=== PATIENT | female | born 1990 | race Two or more races ===

== ENCOUNTER 2018-02-04 13:47 | Emergency (ER) | payer SELFPAY ==
[2018-02-04] MEDS ORDERED: Sodium Chloride 0.9% 2.5 ML Syringe FLUSH PRN (14:21)
[2018-02-04] MEDS ORDERED: Sodium Chloride 0.9% 10 ML Syringe FLUSH PRN (14:21)
[2018-02-04 15:02] LABS: CHLORIDE,CL 102 mmol/L (98-107); SODIUM,NA 136 mmol/L (136-145)
[2018-02-04] MEDS ORDERED: Famotidine 20 MG/2 ML SDV IVPUSH ONE (15:04)
[2018-02-04] MEDS ORDERED: Ondansetron 4 MG Tab.DIS PO ONE (15:13)
[2018-02-04] MEDS ORDERED: Famotidine 20 MG Tab PO ONE (15:14)
--- NOTE | 2018-02-04 15:44 | EDM.PDOC ---
ED HPI GENERAL MEDICAL PROBLEM - General Chief Complaint: Abdominal Pain Stated Complaint: ABDOMINAL PAIN Time Seen by Provider: 02/04/18 13:55 Source of Information: Reports: Patient History Limitations: Reports: No Limitations - History of Present Illness INITIAL COMMENTS - FREE TEXT/NARRATIVE: History of present illness: []Patient found out she was on vacation and has been vomiting frequently now presents with epigastric pain. She denies any lower abdominal pain, vaginal bleeding or discharge. Patient denies any vomiting blood, fevers, chills or diarrhea. Review of systems: As per history of present illness and below otherwise all systems reviewed and negative. Past medical history: As per history of present illness and as reviewed below otherwise noncontributory. Surgical history: As per history of present illness and as reviewed below otherwise noncontributory. Social history: No reported history of drug or alcohol abuse. Family history: As per history of present illness and as reviewed below otherwise noncontributory. Physical exam: General: Well developed, well nourished in NAD HEENT: Atraumatic, normocephalic, pupils reactive, negative for conjunctival pallor or scleral icterus, mucous membranes moist, throat clear, neck supple, nontender, trachea midline. Lungs: Clear to auscultation, breath sounds equal bilaterally, chest nontender. Heart: S1S2, regular, negative for clicks, rubs, or JVD. Abdomen: Soft, nondistended, nontender. Negative for masses or hepatosplenomegaly. Negative for costovertebral tenderness. Pelvis: Stable nontender. Genitourinary: Deferred. Rectal: Deferred. Extremities: Atraumatic, negative for cords or calf pain. Neurovascular unremarkable. Neuro: Awake, alert, oriented. Cranial nerves II through XII unremarkable. Cerebellum unremarkable. Motor and sensory unremarkable throughout. Exam nonfocal. Diagnostics: []HCG is 78,328, CBC normal chemistry normal UA negative Therapeutics: []Patient was given Pepcid and Zofran Impression: []Gastritis Plan: []Follow-up with OB as scheduled, take Pepcid daily Zofran for nausea increase fluids and return if any symptoms worsen or change. Definitive disposition and diagnosis as appropriate pending reevaluation and review of above. Abdominal Pain Score (Numeric/FACES): 5 - Related Data Allergies Allergy/AdvReac Type Severity Reaction Status Date / Time No Known Allergies Allergy Verified 02/04/18 14:04 Home Meds: Home Meds Vit No.129/Iron/FA [ One Daily Tablet] 1 tab DAILY 02/04/18 [ History] Past Medical History - Past Health History Medical/Surgical History: Denies Medical/Surgical History Social & Family History - Family History Family Medical History: Noncontributory - Tobacco Use Smoking Status *Q: Never Smoker Second Hand Smoke Exposure: No - Caffeine Use Caffeine Use: Reports: None - Recreational Drug Use Recreational Drug Use: No ED ROS GENERAL - Review of Systems Review Of Systems: See Below (See history of present illness) ED EXAM - Physical Exam Exam: See Below (See history of present illness) Course - Vital Signs Last Recorded V/S: Last Vital Signs Temp 98.0 F 02/04/18 15:56 Pulse 67 02/04/18 15:56 Resp 18 02/04/18 15:56 BP 109/48 L 02/04/18 15:56 Pulse Ox 98 02/04/18 15:56 - Orders/Labs/Meds Orders: Active Orders 24 hr Category Date Time Status UA W/MICROSCOPIC [URIN] Stat Lab 02/04/18 14:36 Ordered Saline Lock Insert [OM.PC] Stat Oth 02/04/18 14:21 Ordered Labs: Laboratory Tests 02/04/18 02/04/18 02/04/18 Range/Units 14:30 14:30 14:30 WBC 7.39 (4.0-11.0) K/uL RBC 4.33 (4.30-5.90) M/uL Hgb 12.9 (12.0-16.0) g/dL Hct 37.5 (36.0-46.0) % MCV 86.6 (80.0-98.0) fL MCH 29.8 (27.0-32.0) pg MCHC 34.4 (31.0-37.0) g/dL RDW Std Deviation 39.8 (28.0-62.0) fl RDW Coeff of Jose F 13 (11.0-15.0) % Plt Count 202 (150-400) K/uL MPV 11.50 (7.40-12.00) fL Neut % (Auto) 67.2 (48.0-80.0) % Lymph % (Auto) 26.0 (16.0-40.0) % Union % (Auto) 5.3 (0.0-15.0) % Eos % (Auto) 1.4 (0.0-7.0) % Baso % (Auto) 0.1 (0.0-1.5) % Neut # (Auto) 5.0 (1.4-5.7) K/uL Lymph # (Auto) 1.9 (0.6-2.4) K/uL Union # (Auto) 0.4 (0.0-0.8) K/uL Eos # (Auto) 0.1 (0.0-0.7) K/uL Baso # (Auto) 0.0 (0.0-0.1) K/uL Nucleated RBC % 0.0 /100WBC Nucleated RBCs # 0 K/uL Sodium 136 (136-145) mmol/L Potassium 3.8 (3.5-5.1) mmol/L Chloride 102 (98-107) mmol/L Carbon Dioxide 24.0 (21.0-32.0) mmol/L BUN 7 (7.0-18.0) mg/dL Creatinine 0.7 (0.6-1.0) mg/dL Est Cr Clr Drug Dosing 88.25 mL/min Estimated GFR (MDRD) > 60.0 ml/min Glucose 107 H (74-106) mg/dL Calcium 8.6 (8.5-10.1) mg/dL Total Bilirubin 0.2 (0.2-1.0) mg/dL AST 11 L (15-37) IU/L ALT 22 (14-63) IU/L Alkaline Phosphatase 55 (46-116) U/L Total Protein 7.3 (6.4-8.2) g/dL Albumin 3.7 (3.4-5.0) g/dL Globulin 3.6 H (2.0-3.5) g/dL Albumin/Globulin Ratio 1.0 L (1.3-2.8) Lipase 111 (73-393) U/L HCG, Quant 23715.0 mIU/mL Urine Color Urine Appearance Urine pH (5.0-8.0) Ur Specific [place] (1.001-1.035) Urine Protein (NEGATIVE) mg/dL Urine Glucose (UA) (NEGATIVE) mg/dL Urine Ketones (NEGATIVE) mg/dL Urine Occult Blood (NEGATIVE) Urine Nitrite (NEGATIVE) Urine Bilirubin (NEGATIVE) Urine Urobilinogen (<2.0) EU/dL Ur Leukocyte Esterase (NEGATIVE) Urine RBC (0-2/HPF) Urine WBC (0-5/HPF) Ur Epithelial Cells (NONE-FEW) Urine Bacteria (NEGATIVE) Urine Mucus (NONE-MOD) 02/04/18 Range/Units 14:36 WBC (4.0-11.0) K/uL RBC (4.30-5.90) M/uL Hgb (12.0-16.0) g/dL Hct (36.0-46.0) % MCV (80.0-98.0) fL MCH (27.0-32.0) pg MCHC (31.0-37.0) g/dL RDW Std Deviation (28.0-62.0) fl RDW Coeff of Jose F (11.0-15.0) % Plt Count (150-400) K/uL MPV (7.40-12.00) fL Neut % (Auto) (48.0-80.0) % Lymph % (Auto) (16.0-40.0) % Union % (Auto) (0.0-15.0) % Eos % (Auto) (0.0-7.0) % Baso % (Auto) (0.0-1.5) % Neut # (Auto) (1.4-5.7) K/uL Lymph # (Auto) (0.6-2.4) K/uL Union # (Auto) (0.0-0.8) K/uL Eos # (Auto) (0.0-0.7) K/uL Baso # (Auto) (0.0-0.1) K/uL Nucleated RBC % /100WBC Nucleated RBCs # K/uL Sodium (136-145) mmol/L Potassium (3.5-5.1) mmol/L Chloride (98-107) mmol/L Carbon Dioxide (21.0-32.0) mmol/L BUN (7.0-18.0) mg/dL Creatinine (0.6-1.0) mg/dL Est Cr Clr Drug Dosing mL/min Estimated GFR (MDRD) ml/min Glucose (74-106) mg/dL Calcium (8.5-10.1) mg/dL Total Bilirubin (0.2-1.0) mg/dL AST (15-37) IU/L ALT (14-63) IU/L Alkaline Phosphatase (46-116) U/L Total Protein (6.4-8.2) g/dL Albumin (3.4-5.0) g/dL Globulin (2.0-3.5) g/dL Albumin/Globulin Ratio (1.3-2.8) Lipase (73-393) U/L HCG, Quant mIU/mL Urine Color YELLOW Urine Appearance SLT CLOUDY Urine pH 6.0 (5.0-8.0) Ur Specific [place] 1.020 (1.001-1.035) Urine Protein NEGATIVE (NEGATIVE) mg/dL Urine Glucose (UA) NEGATIVE (NEGATIVE) mg/dL Urine Ketones NEGATIVE (NEGATIVE) mg/dL Urine Occult Blood NEGATIVE (NEGATIVE) Urine Nitrite NEGATIVE (NEGATIVE) Urine Bilirubin NEGATIVE (NEGATIVE) Urine Urobilinogen 0.2 (<2.0) EU/dL Ur Leukocyte Esterase NEGATIVE (NEGATIVE) Urine RBC 0-1 (0-2/HPF) Urine WBC 0-1 (0-5/HPF) Ur Epithelial Cells MANY (NONE-FEW) Urine Bacteria RARE (NEGATIVE) Urine Mucus LIGHT (NONE-MOD) Meds: Medications Discontinued Medications Generic Name Dose Route Start Last Admin Trade Name Freq PRN Reason Stop Dose Admin Famotidine 20 mg 02/04/18 15:14 02/04/18 15:19 Pepcid PO 02/04/18 15:15 20 mg ONETIME ONE Administration Ondansetron HCl 4 mg 02/04/18 15:13 02/04/18 15:19 Zofran Odt PO 02/04/18 15:14 4 mg ONETIME ONE Administration Sodium Chloride 10 ml 02/04/18 14:21 Saline Flush FLUSH ASDIRECTED PRN Keep Vein Open Sodium Chloride 2.5 ml 02/04/18 14:21 Saline Flush FLUSH ASDIRECTED PRN Keep Vein Open Departure - Departure Time of Disposition: 15:42 Disposition: Home, Self-Care 01 Condition: Good Clinical Impression: Gastritis Qualifiers: Gastritis type: unspecified gastritis Chronicity: acute Gastritis bleeding: presence of bleeding unspecified Qualified Code(s): K29.00 - Acute gastritis without bleeding - Discharge Information Instructions: Gastritis, Adult, [id number] Referrals: PCP,None [Primary Care Provider] - Forms: ED Department Discharge Additional Instructions: The following information is given to patients seen in the emergency department who are being discharged to home. This information is to outline your options for follow-up care. We provide all patients seen in our emergency department with a follow-up referral. The need for follow-up, as well as the timing and circumstances, are variable depending upon the specifics of your emergency department visit. If you don't have a primary care physician on staff, we will provide you with a referral. We always advise you to contact your personal physician following an emergency department visit to inform them of the circumstance of the visit and for follow-up with them and/or the need for any referrals to a consulting specialist. The emergency department will also refer you to a specialist when appropriate. This referral assures that you have the opportunity for follow-up care with a specialist. All of these measure are taken in an effort to provide you with optimal care, which includes your follow-up. Under all circumstances we always encourage you to contact your private physician who remains a resource for coordinating your care. When calling for follow-up care, please make the office aware that this follow-up is from your recent emergency room visit. If for any reason you are refused follow-up, please contact the [facility] Emergency Department at and asked to speak to the emergency department charge nurse. Take Pepcid for epigastric pain and Zofran for nausea increase fluids follow-up with women's health as needed. [facility] Primary Care - Women's Health [address] [place] [id number] - My Orders Last 24 Hours: My Active Orders 02/04/18 14:21 Saline Lock Insert [OM.PC] Stat 02/04/18 14:36 UA W/MICROSCOPIC [URIN] Stat - Assessment/Plan Last 24 Hours: My Active Orders 02/04/18 14:21 Saline Lock Insert [OM.PC] Stat 02/04/18 14:36 UA W/MICROSCOPIC [URIN] Stat
== END 2018-02-04 15:53 | disposition home or self-care (01) ==
LOC: MW.ED 13:47
DX: O99.619 Diseases of the digestive system complicating pregnancy, unspecified trimester (principal); K29.00 Acute gastritis without bleeding
CPT/HCPCS: 36415; 80053; 81001; 83690; 84702; 85025; 99284; A9270; 99283